=== PATIENT | male | born 1940 | race Caucasian/White ===

== ENCOUNTER 2018-07-02 15:07 | Emergency (ER) | payer MEDICARE ==
[~2018-07-02] VITALS: Ht 182.9 cm; Wt 97.5 kg
[~2018-07-02 15:07] MED LIST: CITA10TA59; DILT240C46; SIMV-8; ZOLP10TA
[2018-07-02 17:34] LABS: Basophils # (auto) 0 uL; Basophils % (auto) 0.3 % (0.0-2.0); Eosinophils # (auto) 0 uL; Hematocrit 46.7 % (41.0-53.0); Hemoglobin 15.8 g/dL (13.5-17.5); Lymphocytes # (auto) 0.3 uL; Lymphocytes % (auto) 5.4 % (10.0-50.0); Mean Corpuscular Hemoglobin 35.1 pg (28.0-32.0); Mean Corpuscular Hgb Conc. 33.9 g/dL (32.0-36.0); Mean Corpuscular Volume 103.4 fL (80.0-100.0); Monocytes # (auto) 0.2 uL; Neutrophils % (auto) 91.3 % (37.0-80.0); Nucleated Red Blood Cells % 0.1 %; Platelet Count (auto) 179 10^3/uL (140-450); Red Blood Cells 4.51 10^6/uL (4.5-5.90); Red Cell Distribution Width 16.9 % (11.8-14.3); White Blood Cell 5.5 10^3/uL (4.4-10.8)
[2018-07-02 17:35] LABS: Alanine Aminotransferase 65 U/L (16-61); Albumin 3.7 g/dL (3.4-5.0); Anion Gap 10 (5-15); Aspartate Aminotransferase 54 U/L (15-37); BUN/Creatinine Ratio 11.8; Blood Urea Nitrogen 14 mg/dL (7-18); Calcium 8.3 mg/dL (8.5-10.1); Carbon Dioxide 23 mmol/L (21-32); Chloride 110 mmol/L (98-107); GFR African American 76 mL/min; GFR Non-African American 63 mL/min; Glucose 136 mg/dL (74-106); Magnesium 2.1 mg/dL (1.6-2.6); Potassium 4.5 mmol/L (3.5-5.1); Sodium 143 mmol/L (136-145)
[2018-07-02 17:40] LABS: Alkaline Phosphatase 72 U/L (45-117); Bilirubin, Total 1.2 mg/dL (0.2-1.0); Total Protein 7.4 g/dL (6.4-8.2)
[2018-07-02 18:57] VITALS: BP 133/86
== END 2018-07-02 19:00 | disposition home or self-care (01) ==
LOC: ER 15:07 → EDUNIT# 15:07 → EDBD 15:07 → ER 18:59
DX: F41.9 Anxiety disorder, unspecified (principal); E78.5 Hyperlipidemia, unspecified; I10 Essential (primary) hypertension; Z79.899 Other long term (current) drug therapy
CPT/HCPCS: 36415; 71045; 80053; 83735; 83880; 84484; 85025; 94761

== ENCOUNTER 2020-07-04 15:31 | Inpatient (IN) | payer MEDICARE ==
[~2020-07-04] VITALS: Ht 190.5 cm; Wt 89.2 kg
[2020-07-04] MEDS ORDERED: SODIUM CHLORIDE 0.9% 1,000 ML IVB ONE (17:15)
[2020-07-04] MEDS ORDERED: MORPHINE SULF INJ 2 MG/ML SYRINGE 1ML IV ONE (17:15)
[2020-07-04] MEDS ORDERED: ONDANSETRON HCL 4 MG/2 ML VIAL IV ONE (17:15)
[2020-07-04 18:30] LABS: Hemoglobin 12.9 g/dL (13.5-17.5); Platelet Count (auto) 178 10^3/uL (140-450)
[2020-07-04 18:33] LABS: Hematocrit 37.6 % (41.0-53.0); Mean Corpuscular Hemoglobin 33.2 pg (28.0-32.0); Mean Corpuscular Hgb Conc. 34.3 g/dL (32.0-36.0); Mean Corpuscular Volume 96.8 fL (80.0-100.0); Red Blood Cells 3.89 10^6/uL (4.5-5.90); Red Cell Distribution Width 17.3 % (11.8-14.3)
[2020-07-04 18:35] LABS: Anion Gap 6 (5-15); Blood Urea Nitrogen 13 mg/dL (7-18); Carbon Dioxide 25 mmol/L (21-32); Chloride 109 mmol/L (98-107); Glucose 122 mg/dL (74-106); Potassium 3.9 mmol/L (3.5-5.1); Sodium 140 mmol/L (136-145)
[2020-07-04 18:36] LABS: Alanine Aminotransferase 41 U/L (16-61); Albumin 3.7 g/dL (3.4-5.0); Aspartate Aminotransferase 31 U/L (15-37); BUN/Creatinine Ratio 11.6; Calcium 9.1 mg/dL (8.5-10.1); GFR African American 81 mL/min; GFR Non-African American 67 mL/min; Lipase 70 U/L (73-393); Magnesium 2.1 mg/dL (1.6-2.6)
[2020-07-04 18:40] LABS: Alkaline Phosphatase 104 U/L (45-117); Bilirubin, Total 1.3 mg/dL (0.2-1.0); Total Protein 7.3 g/dL (6.4-8.2)
[2020-07-04 18:53] LABS: Basophils % (manual) 0 (0.0-2.0); Blast Cells 0; Eosinophils % (manual) 0 (0-7); Metamyelocytes % 0; Myelocytes % 0; Promyelocytes % 0; Reactive Lymphocytes 0; White Blood Cell 1.8 10^3/uL (4.4-10.8)
[2020-07-04 19:07] LABS: INR 1.11 (0.9-1.15)
[2020-07-04 19:15] LABS: Partial Thromboplastin Time > 139.0 sec (23.0-31.2)
[2020-07-04 19:25] LABS: Band Neutrophils % (manual) 8; Lymphocytes % (manual) 21 (10.0-50.0); Monocytes % (manual) 13 (0-12)
[2020-07-04] MEDS ORDERED: DOCUSATE SOD 100 MG CAP PO PRN (20:30)
[2020-07-04] MEDS ORDERED: ACETAMINOPHEN 325 MG TAB PO PRN (20:30)
[2020-07-04] MEDS ORDERED: ONDANSETRON HCL 4 MG/2 ML VIAL IV PRN (20:30)
[2020-07-04] MEDS ORDERED: cloNIDine HCL 0.1 MG TAB PO PRN (20:30)
[2020-07-04] MEDS ORDERED: MORPHINE SULF INJ 2 MG/ML SYRINGE 1ML IV PRN (20:30)
[2020-07-04] MEDS ORDERED: HYDROcodone-ACET 5/325MG TAB PO PRN (20:30)
[2020-07-04 21:14] LABS: Urine Bacteria NONE SEEN /hpf (None Seen); Urine Blood 3+ /uL (Negative); Urine Hyaline Cast FEW /lpf (0 - 2); Urine Mucus FEW (None Seen); Urine WBC 6 /hpf (0 - 3)
[2020-07-04 21:46] VITALS: BP 156/90
[2020-07-05] MEDS ORDERED: LEVO25TA6 PO (02:13)
[2020-07-05] MEDS ORDERED: LOSA-69 PO (02:13)
[2020-07-05] MEDS ORDERED: TEMA30CA PO (02:13)
[2020-07-05] MEDS ORDERED: METO25TA5 PO (02:13)
[2020-07-05] MEDS ORDERED: PNEUMOCOCCAL VACC POLYS 25 MCG/0.5 ML VIAL IM SCH (03:15)
[2020-07-05 05:00] VITALS: BP 139/93
[2020-07-05 06:33] LABS: Hematocrit 43.8 % (41.0-53.0); Mean Corpuscular Hemoglobin 33.2 pg (28.0-32.0); Mean Corpuscular Hgb Conc. 34.4 g/dL (32.0-36.0); Mean Corpuscular Volume 96.5 fL (80.0-100.0); Platelet Count (auto) 229 10^3/uL (140-450); Red Blood Cells 4.53 10^6/uL (4.5-5.90); Red Cell Distribution Width 17.9 % (11.8-14.3); White Blood Cell 3.3 10^3/uL (4.4-10.8)
[2020-07-05 06:37] LABS: Potassium 3.7 mmol/L (3.5-5.1)
[2020-07-05 06:43] LABS: BUN/Creatinine Ratio 15.3; Calcium 8.8 mg/dL (8.5-10.1)
[2020-07-05 06:49] LABS: Basophils % (manual) 0 (0.0-2.0); Blast Cells 0; Eosinophils % (manual) 0 (0-7); Metamyelocytes % 0; Myelocytes % 0; Promyelocytes % 0; Reactive Lymphocytes 0
[2020-07-05 08:35] VITALS: BP 145/82
[2020-07-05 08:59] VITALS: BP 172/78
[2020-07-05 11:23] LABS: Lymphocytes % (manual) 35 (10.0-50.0)
[2020-07-05 11:28] LABS: Monocytes % (manual) 16 (0-12)
[2020-07-05 11:29] LABS: Band Neutrophils % (manual) 6
[2020-07-05] MEDS ORDERED: TRIF0.27 PO (11:42)
[2020-07-05 13:00] VITALS: BP 129/101
[2020-07-05 17:00] VITALS: BP 116/77
[2020-07-05] MEDS ORDERED: ONDA-144 PO (18:17)
[2020-07-05] MEDS ORDERED: HYDR-4833 PO (18:17)
[2020-07-05] MEDS: SODIUM CHLORIDE 0.9% 1,000 ML IV SCH ×2 (18:30→18:31)
== END 2020-07-05 20:40 | disposition home health service (06) | DRG 392 ==
LOC: ER 15:31 → TELE-WESTW 15:32
PROVIDERS: ADMIT Hospitalist; ATTEND Hospitalist
DX: K52.9 Noninfective gastroenteritis and colitis, unspecified (principal); C18.9 Malignant neoplasm of colon, unspecified; C78.00 Secondary malignant neoplasm of unspecified lung; G89.3 Neoplasm related pain (acute) (chronic); I10 Essential (primary) hypertension; E78.5 Hyperlipidemia, unspecified; E03.9 Hypothyroidism, unspecified; F32.9 Major depressive disorder, single episode, unspecified; G47.00 Insomnia, unspecified; Z82.49 Family history of ischemic heart disease and other diseases of the circulatory system; Z85.038 Personal history of other malignant neoplasm of large intestine; Z90.49 Acquired absence of other specified parts of digestive tract
CPT/HCPCS: 36415; 71250; 74176; 80048; 80053; 81001; 83690; 83735; 84484; 85007; 85027; 85610; 85730; 96361; 96374; 96375; G0378; J1642; J2405

== ENCOUNTER 2020-07-17 23:34 | Emergency (ER) | payer OTHER ==
[~2020-07-17] VITALS: Ht 182.9 cm; Wt 89.8 kg
[~2020-07-17 23:34] MED LIST changes: +HYDR-4833 PO; +LEVO25TA6 PO; +LOSA-69 PO; +METO25TA5 PO; +ONDA-144 PO; +TEMA30CA PO; +TRIF0.27 PO
[2020-07-18] MEDS ORDERED: ONDANSETRON HCL 4 MG/2 ML VIAL IV ONE (00:30)
[2020-07-18] MEDS ORDERED: SODIUM CHLORIDE 0.9% 500 ML IV ONE (00:30)
[2020-07-18] MEDS ORDERED: HYDROmorphone HCL 2 MG/ML VL IV ONE ×2 (00:30→02:15)
[2020-07-18 00:52] LABS: Basophils # (auto) 0.1 10 ^3/uL (0-0.2); Basophils % (auto) 0.5 % (0.0-2.0); Eosinophils # (auto) 0 10 ^3/uL (0-0.8); Eosinophils % (auto) 0.1 % (0.0-7.0); Hematocrit 47.2 % (41.0-53.0); Hemoglobin 15.8 g/dL (13.5-17.5); Lymphocytes # (auto) 0.9 10 ^3/uL (0.4-5.4); Mean Corpuscular Hemoglobin 31.7 pg (28.0-32.0); Mean Corpuscular Hgb Conc. 33.4 g/dL (32.0-36.0); Mean Corpuscular Volume 94.9 fL (80.0-100.0); Monocytes # (auto) 0.8 10 ^3/uL (0-1.3); Monocytes % (auto) 4.4 % (0.0-12.0); Neutrophils # (auto) 15.5 10 ^3/uL (1.6-8.6); Nucleated Red Blood Cells % 0.2 %; Platelet Count (auto) 205 10^3/uL (140-450); Red Blood Cells 4.98 10^6/uL (4.5-5.90); Red Cell Distribution Width 17.6 % (11.8-14.3); White Blood Cell 17.2 10^3/uL (4.4-10.8)
[2020-07-18 01:08] LABS: INR 1.08 (0.9-1.15); Partial Thromboplastin Time 30.2 sec (23.0-31.2)
[2020-07-18 01:10] LABS: Albumin 3.8 g/dL (3.4-5.0); BUN/Creatinine Ratio 9.5; Calcium 9.9 mg/dL (8.5-10.1); Potassium 4.2 mmol/L (3.5-5.1)
[2020-07-18 01:13] LABS: Bilirubin, Total 1.4 mg/dL (0.2-1.0)
[2020-07-18 02:08] VITALS: BP 163/114
[2020-07-18 02:24] LABS: Lactic Acid w/Reflex 2.2 mmol/L (0.4-2.0)
[2020-07-18] MEDS ORDERED: MAGNESIUM CITRATE SOLUTION 300 ML BTL PO ONE (03:30)
== END 2020-07-18 04:08 | disposition home or self-care (01) ==
LOC: ER 23:35
DX: N20.0 Calculus of kidney (principal); K59.03 Drug induced constipation; C78.5 Secondary malignant neoplasm of large intestine and rectum; E78.5 Hyperlipidemia, unspecified; I10 Essential (primary) hypertension
CPT/HCPCS: 36415; 80053; 83605; 83880; 85025; 85610; 85730; 93005; 96361; 96374; 96375; 96376; 99284; J1170; J2405; J7030